=== PATIENT | male | born 1965 | race Caucasian/White ===

== ENCOUNTER 2021-01-10 06:03 | Day surgery (SDC) | payer BC ==
[~2021-01-10] VITALS: Ht 180.3 cm; Wt 99.8 kg
[~2021-01-10 06:03] MED LIST: ATOR20 PO; CLON.2 PO; DEPO-TESTO200 MG/14 IM; DHA100 MG PO; LISI10 PO; Lisinopril-Hct1 EAC4 PO
--- NOTE | 2021-01-10 06:53 | NUR ---
PT AMBULATES TO [facility] c STEADY GAIT. REPORTS NPO SINCE MIDNIGHT. History, Chart, Medications and Allergies reviewed before start of procedure. Lungs clear T/O to Auscultation. Patient reports completing Chlorhexadine shower X2 prior to admission to hospital. Patient States Post-Procedure ride home has been arranged.
--- NOTE | 2021-01-10 09:56 | NUR ---
Discharge instructions reviewed with patient. Patient verbalizes understanding. Copy given to patient to take home. Patient States Post-Procedure ride home has been arranged. Discharged via wheelchair to private car for ride home.
--- NOTE | 2021-01-12 09:47 | NUR ---
01/12/21 0947 Karen Ca VERIFICATIONS: EDIT CHART.
== END 2021-01-10 09:41 | disposition home or self-care (01) ==
LOC: ORSCMMR 06:03 → ORD 07:30 → ORSCMMR 09:41
PROVIDERS: Surgery
PROC: 0WUF0JZ Supplement Abdominal Wall with Synthetic Substitute, Open Approach (ICD-10-PCS; principal; 2021-01-10 07:30)
DX: K42.0 Umbilical hernia with obstruction, without gangrene (principal); E78.5 Hyperlipidemia, unspecified; Z79.899 Other long term (current) drug therapy
CPT/HCPCS: A9270; C1781; J0690; J1100; J1885; J2250; J2370; J2405; J2704; J3010; J7120

== ENCOUNTER 2022-05-28 22:44 | Inpatient (IN) | payer BC ==
[~2022-05-28] VITALS: Ht 180.3 cm; Wt 96.4 kg
[2022-05-29] VITALS (16 sets, daily range): BP systolic 123–163; BP diastolic 46–100
--- NOTE | 2022-05-29 00:55 | NUR ---
INCREASE RESTLESSNESS IN BED, SATS 85% RA. O2 5L/NC PLACED, HR TACHY 100'S, RR, 30'S-40'S, BP STABLE. CONTINUE TO MONITOR.
--- NOTE | 2022-05-29 02:25 | NUR ---
IV LEFT HAND FLUSHED WITH 10CC NS FOR IVF'S.DRESSING D&I.
--- NOTE | 2022-05-29 02:41 | NUR ---
PT BROUGHT TO DAY SURGERY FOR FOREIGN BODY REMOVAL. PRE-OP ASSESSMENT DONE. LIDOCAINE 2% SPRAYED TO OROPHARYNX AND NOT TOLERABLE. PT STARTED TO VOMIT. ATTEMPTED LIDO SPARY AGAIN AND DR POTTER WITNESSED PT VOMITING. DR POTTER SPOKE WITH PATIENT AND MADE DECISSION THAT PATIENT NEEDS TO BE INTUBATED PRIOR TO PROCEDURE. ER DOCTOR AT BEDSIDE CONSENTING.
--- NOTE | 2022-05-29 05:07 | NUR ---
PT BACK INTO DAY SURGERY DEPT FOR RECOVERY TO DISCHARGE HOME. BP STABLE, RR HIGH 20'S TO 30'S, HR TACHY. CONTINUE TO MONITOR. DR. POTTER AT BEDSIDE.
--- NOTE | 2022-05-29 05:30 | NUR ---
PT AWAKE. O2/NC TURNED OFF TO CHECK ON ROOM AIR, SATS 92%. CONTINUE TO MONITOR.
--- NOTE | 2022-05-29 05:57 | NUR ---
PT CONTINUES TO BE RESTLESS, DIAPHORETIC, RR MID 30'S TO 40'S, HR TACHY. CALLED TO DR POTTER REGARDING PT STATUS AND WITH POSSIBLE OBSERVATION ADMISSION NEEDED. PER DR WILL COME AND SEE PT.
--- NOTE | 2022-05-29 06:11 | NUR ---
DECREASE SATS 87%. INCREASE O2 6L/NC, CONTINUES TO BE RESTLESS, TACHYPNEIC, BP STABLE. DR POTTER ADMITTING PT FOR OBSERVATION. CONTINUE TO MONITOR.
--- NOTE | 2022-05-29 06:30 | NUR ---
PT CONTINUES TO BE RESTLESS, DECREASE SATS 88%, TACHYPENIC. REPLACED O2 WITH 11L OXYMIZER. AWAITING FOR BED ASSIGNMENT. WILL ORDER PCXR FOR DECREASE SATS/POST FOREIGN BODY REMOVAL. CONTINUE TO MONITOR CLOSELY.
--- NOTE | 2022-05-29 06:35 | NUR ---
REPORT GIVEN TO [facility]AN ICU NIGHT AND JORDAN DAY SHIFT CHARGE NURSE. AWAIT FOR ADMISSION ORDERS.
--- NOTE | 2022-05-29 07:15 | NUR ---
05/29/22 0715 Low Martins History, Chart, Medications and Allergies reviewed before start of procedure.MONITOR INTACT WITH CONTINUOUS PULSE OXIMETRY, CONTINUOUS END TITAL CO2, AND INTERMITTENT BLOOD PRESSURE.SEE NURSES NOTES.
--- NOTE | 2022-05-29 07:57 | NUR ---
TRANSFERRED PT VIA [facility] TO ICU 15 PCU STATUS. WILL REPORT OFF TO DANNIELLE PICHARDO RN IN ICU.
--- NOTE | 2022-05-29 08:00 | NUR ---
ICU ADMISSION: REPORT RECEIVED FROM GIANNI Dickinson RN. PT ARRIVED TO ICU-15 AT APPROX 0800 THIS AM. ON ARRIVAL, THE PT IS AWAKE, A&O TO ALL, ABLE TO STAND & TX FROM GURNEY TO BED. LS CLEAR, DIM IN BASES. PT INITIALLY ON 11L OXYMYZER, TITRATED DOWN TO 5L W/ O2 SATS > 95%. MONITOR SHOWS ST W/ HR 100-130s, INCREASED W/ EXERTION. HTN W/ SBP 150-160s IS BASELINE, PER PT. HE CURRENTLY HAS NO GI COMPLAINTS, DIET ORDERED TO BE ADVANCED TOLERATED PER DR POTTER. ICE CHIPS GIVEN PER PT REQUEST W/ NO C/O NAUSEA. PT VOIDS URINE W/O DIFFICULTY. SKIN CONDITION OVERALL INTACT, PT REPOSITIONS SELF FOR COMFORT PRN. WILL CONTINUE TO MONITOR & UPDATE NEEDED.
--- NOTE | 2022-05-29 08:50 | NUR ---
DR WHALEN: PROVIDER HAS BEEN AT BEDSIDE TO EVAL PT & COMPLETE ADMISSION PROCESS THIS AM. PT REMAINS PCU STATUS & STABLE, NO CHANGES AT THIS TIME.
[2022-05-29 08:56] LABS: BASOPHILS ABSOLUTE AUTO 0.06 K/mm3 (0.00-0.23); BASOPHILS PERCENT AUTO 1 % (0-2); EOSINOPHILS ABSOLUTE AUTO 0.01 K/mm3 (0.00-0.68); EOSINOPHILS PERCENT AUTO 0 % (0-6); Hematocrit 52.6 % (37.0-53.0); Hemoglobin 17.5 g/dL (13.5-17.5); IMMATURE GRAN ABSOLUTE AUTO 0.02 K/mm3 (0.00-0.10); IMMATURE GRAN PERCENT AUTO 0 % (0-1); LYMPHOCYTES ABSOLUTE AUTO 1.08 K/mm3 (0.84-5.20); LYMPHOCYTES PERCENT AUTO 9 % (21-46); MONOCYTES ABSOLUTE AUTO 0.46 K/mm3 (0.16-1.47); MONOCYTES PERCENT AUTO 4 % (4-13); Mean Corpuscular HGB 28.4 pg (26.0-34.0); Mean Corpuscular HGB Conc 33.3 g/dL (31.5-36.5); Mean Corpuscular Volume 85 fL (80-100); Mean Platelet Volume 9.8 fL (9.1-12.4); NEUTROPHILS ABSOLUTE AUTO 10.85 K/mm3 (1.96-9.15); NEUTROPHILS PERCENT AUTO 87 % (41-73); Platelet Count 208 K/mm3 (150-400); RDW Coefficient Variation 13.4 % (11.7-14.2); RDW Standard Deviation 41.5 fL (35.1-46.3); Red Blood Cell Count 6.16 M/mm3 (4.30-5.90); White Blood Cell Count 12.48 K/mm3 (4.00-11.30)
[2022-05-29 09:13] LABS: Albumin, Blood 3.8 g/dL (3.4-5.0); Anion Gap 1 mmol/L (6-16); Blood Urea Nitrogen 24 mg/dL (8-24); CO2, Blood 27 mmol/L (21-32); Chloride, Blood 116 mmol/L (98-108); Creatinine, Blood 1.09 mg/dL (0.60-1.20); Glomerular Filtration Rate 79 (60-); Glucose, Blood 99 mg/dL (70-99); Magnesium, Blood 2.1 mg/dL (1.6-2.4); Phosphorus, Blood 3.5 mg/dL (2.5-4.9); Potassium, Blood 3.4 mmol/L (3.5-5.5); Sodium, Blood 144 mmol/L (136-145)
--- NOTE | 2022-05-29 17:20 | NUR ---
SHIFT SUMMARY: NO ACUTE CHANGES SINCE PRIOR UPDATES. PT REMAINS A&O, PLEASANT & COOPERATIVE. HE DENIES ANY CURRENT PAIN. LOW GRADE FEVER NOTED THIS EVENING W/ TYLENOL GIVEN PER EMAR. LS DIM IN BASES, PT ON 3L NC W/ O2 SATS > 92%. PT STS HAVING SOME SOB W/ EXERTION, "IT FEELS LIKE I HAVE A PNEUMONIA OR SOMETHING." ASPIRATION LIKLIHOOD HAS BEEN DISCUSSED. MONITOR SHOWS SR W/ HR 90s, BP STABLE. PT HAS NO GI COMPLAINTS, IS TOLERATING CLEAR LIQUID DIET WELL. WILL ADVANCE TO FULL LIQUIDS FOR AM. PT VOIDS USING URINAL W/O DIFFICULTY. SKIN CONDITION OVERALL INTACT, PT REPOSITIONS SELF FOR COMFORT PRN. WILL CONTINUE TO MONITOR & REPORT OFF TO ONCOMING RN.
[2022-05-30] VITALS (7 sets, daily range): BP systolic 132–159; BP diastolic 72–89
[2022-05-30 03:46] LABS: BASOPHILS ABSOLUTE AUTO 0.06 K/mm3 (0.00-0.23); BASOPHILS PERCENT AUTO 0 % (0-2); EOSINOPHILS ABSOLUTE AUTO 0.08 K/mm3 (0.00-0.68); EOSINOPHILS PERCENT AUTO 0 % (0-6); Hematocrit 48.1 % (37.0-53.0); IMMATURE GRAN ABSOLUTE AUTO 0.08 K/mm3 (0.00-0.10); IMMATURE GRAN PERCENT AUTO 0 % (0-1); LYMPHOCYTES ABSOLUTE AUTO 1.74 K/mm3 (0.84-5.20); LYMPHOCYTES PERCENT AUTO 9 % (21-46); MONOCYTES ABSOLUTE AUTO 0.83 K/mm3 (0.16-1.47); MONOCYTES PERCENT AUTO 4 % (4-13); Mean Corpuscular HGB 28.3 pg (26.0-34.0); Mean Corpuscular HGB Conc 33.3 g/dL (31.5-36.5); Mean Corpuscular Volume 85 fL (80-100); Mean Platelet Volume 9.4 fL (9.1-12.4); NEUTROPHILS ABSOLUTE AUTO 16.54 K/mm3 (1.96-9.15); NEUTROPHILS PERCENT AUTO 86 % (41-73); Platelet Count 180 K/mm3 (150-400); RDW Coefficient Variation 13.5 % (11.7-14.2); RDW Standard Deviation 41.9 fL (35.1-46.3); Red Blood Cell Count 5.66 M/mm3 (4.30-5.90); White Blood Cell Count 19.33 K/mm3 (4.00-11.30)
[2022-05-30 04:25] LABS: Bun/Creatinine Ratio 19.2 (12.0-20.0); Calcium, Blood 8.8 mg/dL (8.5-10.1); Creatinine, Blood 0.99 mg/dL (0.60-1.20); Potassium, Blood 3.3 mmol/L (3.5-5.5)
--- NOTE | 2022-05-30 06:31 | NUR ---
PATIENT AOX4. SR WITH STABLE BP. ABLE TO WEAN OFF OXYGEN OVERNIGHT AND PATIENT NOW ON ROOM AIR WITH SATS >94. TOLERATING DIET. NO N/V OVERNIGHT.
--- NOTE | 2022-05-30 08:25 | NUR ---
ASSUMED CARE: REPORT RECEIVED FROM TORI Dickinson RN. ASSUMED CARE OF THIS PT AT APPROX 0700. ON ASSESSMENT, THE PT IS AWAKE, A&O TO ALL. FAINT CRACKLES NOTED TO LOWER LUNGS, PT ON RA W/ O2 SATS > 92%. MONITOR SHOWS SR W/ HR 70-80s, BP STABLE. NO GI COMPLAINTS, TOLERATING PO INTAKE WELL. VOIDS URINE W/O DIFFICULTY USING URINAL. URINE NOW SHUTTLE THREADER IN COLOR & PT URINATING MORE OFTEN. SKIN OVERALL INTACT, PT REPOSITIONS SELF FOR COMFORT PRN. WILL CONTINUE TO MONITOR & UPDATE NEEDED.
--- NOTE | 2022-05-30 15:59 | NUR ---
Pt. is awake in his bed and welcomes my visit. Pt. is pleasant, but is unsettled by the impact of the cost of his health care. Listen with empathy and a calming presence. Pt. displays evidence of understanding and engagement. Pastoral budget counselor is given, and then I prayed with the Pt. Pt. verbalized gratitude for the spiritual care visit.
--- NOTE | 2022-05-30 17:00 | NUR ---
TRANSFER TO PCU / SHIFT SUMMARY: REPORT HAS BEEN GIVEN TO JUSTINA Ahmadi RN TO ASSUME CARE. PT TRANSFERRED TO [facility] AT APPROX 1655 VIA WC BY THIS RN. CHART & ALL BELONGINGS TAKEN OVER AT THAT TIME. NO ACUTE CHANGES SINCE PRIOR UPDATES. PT REMAINS A&O, PLEASANT & COOPERATIVE W/ CARE. HE HAS VERBALIZED UNDERSTANDING OF RATIONALE FOR STAYING IN HOSPITAL ONE MORE NIGHT FOR CONTINUED MONITORING OF RESPIRATORY STATUS & ELECTROLYTE LEVELS. LS CLEAR, PT ON RA W/ O2 SATS > 92%. MONITOR SHOWS SR W/ HR 70-80s, BP STABLE. PT HAS NO GI COMPLAINTS, TOLERATING PO INTAKE WELL. LARGE BROWN UNFORMED BM x2 THIS SHIFT, PT STS NORMAL FOR HIM. VOIDS URINE W/O DIFFICULTY USING URINAL. SKIN CONDITION OVERALL INTACT, PT REPOSITIONS SELF FOR COMFORT PRN.
--- NOTE | 2022-05-30 18:05 | NUR ---
SHIFT SUMMARY PT ARRIVED TO PCU FROM ICU VIA WHEELCHAIR AT APPROX 1700. PT A&OX4. SP02>90%ON RA. TELEMETRY SHOWS NSR, HR 90'S. VSS. UP TO BATHROOM SBA TO VOID/HAVE LOOSE BM. FLUIDS INFUSING PER EMAR. MD POTTER IN ROOM TO DISCUSS RESULTS W/ PT. MD POTTER HAVE DISCUSSION ABOUT MEDICATION VS GIVING UP A FOOD CAUSING POTENTIAL ALLERGY. PT ORIENTED TO ROOM, CALL LIGHT. CALL LIGHT IN REACH.
[2022-05-31 03:23] VITALS: BP 136/79
[2022-05-31 04:16] LABS: BASOPHILS ABSOLUTE AUTO 0.04 K/mm3 (0.00-0.23); BASOPHILS PERCENT AUTO 0 % (0-2); EOSINOPHILS ABSOLUTE AUTO 0.17 K/mm3 (0.00-0.68); EOSINOPHILS PERCENT AUTO 1 % (0-6); Hematocrit 47.6 % (37.0-53.0); Hemoglobin 16.1 g/dL (13.5-17.5); IMMATURE GRAN ABSOLUTE AUTO 0.05 K/mm3 (0.00-0.10); IMMATURE GRAN PERCENT AUTO 0 % (0-1); LYMPHOCYTES ABSOLUTE AUTO 1.65 K/mm3 (0.84-5.20); LYMPHOCYTES PERCENT AUTO 11 % (21-46); MONOCYTES ABSOLUTE AUTO 1.11 K/mm3 (0.16-1.47); MONOCYTES PERCENT AUTO 7 % (4-13); Mean Corpuscular HGB 28.2 pg (26.0-34.0); Mean Corpuscular HGB Conc 33.8 g/dL (31.5-36.5); Mean Corpuscular Volume 84 fL (80-100); Mean Platelet Volume 9.7 fL (9.1-12.4); NEUTROPHILS ABSOLUTE AUTO 12.09 K/mm3 (1.96-9.15); NEUTROPHILS PERCENT AUTO 80 % (41-73); Platelet Count 197 K/mm3 (150-400); RDW Coefficient Variation 13.3 % (11.7-14.2); RDW Standard Deviation 40.9 fL (35.1-46.3); White Blood Cell Count 15.11 K/mm3 (4.00-11.30)
[2022-05-31 04:28] LABS: Albumin, Blood 3.2 g/dL (3.4-5.0); Anion Gap 4 mmol/L (6-16); Blood Urea Nitrogen 15 mg/dL (8-24); Bun/Creatinine Ratio 15.8 (12.0-20.0); CO2, Blood 27 mmol/L (21-32); Calcium, Blood 8.9 mg/dL (8.5-10.1); Chloride, Blood 109 mmol/L (98-108); Creatinine, Blood 0.95 mg/dL (0.60-1.20); Glomerular Filtration Rate 93 (60-); Glucose, Blood 115 mg/dL (70-99); Phosphorus, Blood 2.6 mg/dL (2.5-4.9); Potassium, Blood 3.3 mmol/L (3.5-5.5); Sodium, Blood 140 mmol/L (136-145)
--- NOTE | 2022-05-31 05:15 | NUR ---
SHIFT SUMMARY PT A&Ox4, CALLS AND COMMUNICATES NEEDS APPROPRIATELY. BP STABLE, SINUS 60-70's, DENIES CP/PRESSURE. SpO2> 92% RA, DENIES SOB. PT SBA INTO BATHROOM FOR VOIDS, CONTINENT OF URINE AND BOWEL. PT WITH LOOSE STOOLS, STATES THAT HE HAS HAD LOOSE STOOL FOR YEARS AND TAKES IMODIUM AT HOME, NOTIFIED PHYSICIAN, ORDERS PLACED. LOOSE STOOLS SUBSIDED AFTER ADMINISTERING IMODIUM PER EMAR. PT TOLERATED FULL LIQUID DIET WITHOUT DIFFICULTY. NO OTHER EVENTS, WILL REPORT TO ONCOMING RN.
[2022-05-31] MEDS ORDERED: Acetaminophen650 M1 PO (12:58)
[2022-05-31] MEDS ORDERED: Prinivil10 MG PO (12:59)
[2022-05-31] MEDS ORDERED: LOPE2C (12:59)
[2022-05-31] MEDS ORDERED: POTCHL20ER PO (12:59)
[2022-05-31] MEDS ORDERED: HYDCHL25 PO (12:59)
[2022-05-31] MEDS ORDERED: VISBIOME 112.51 EACH PO (13:00)
[2022-05-31] MEDS ORDERED: AMOCLA875 PO (13:01)
--- NOTE | 2022-05-31 19:24 | NUR ---
LATE ENTRY: PATIENT WAS DISCHARGED WITH CURRENT PLAN, MEDICATIONS FAXED TO PHARMACY, NO QUESTIONS OR COMMENTS THAT WERE NOT ANSWERED, MEENA'S POV FOR RIDE. PATIENT DENIES CHEST PAIN PRESSURE OR SOB. RECIEVED AM ANTIBIOTIC AND ANTI FUNGAL. PATIENT ON RA, ABSOLUTELY NO SIGNS OF DISTRESS. NO CONCERNS FROM THIS RN AT THIS TIME. DISCHARGE PAPERWORK AND PERSONLA BELONGINGS WITH PATIENT, ESCORTED BY PCT OUTSIDE.
== END 2022-05-31 13:30 | disposition home or self-care (01) | DRG 177 ==
LOC: ER 22:44 → ICUW 05-29 07:45 → PCU 05-30 16:57
PROVIDERS: Internal Medicine Gastroenterology; ADMIT Internal Medicine
PROC: 0DB18ZX Excision of Upper Esophagus, Via Natural or Artificial Opening Endoscopic, Diagnostic (ICD-10-PCS; 2022-05-29)
PROC: 0DB28ZX Excision of Middle Esophagus, Via Natural or Artificial Opening Endoscopic, Diagnostic (ICD-10-PCS; 2022-05-29)
PROC: 0D758ZZ Dilation of Esophagus, Via Natural or Artificial Opening Endoscopic (ICD-10-PCS; 2022-05-29)
PROC: 0DC58ZZ Extirpation of Matter from Esophagus, Via Natural or Artificial Opening Endoscopic (ICD-10-PCS; principal; 2022-05-29 02:00)
PROC: 0DB38ZX Excision of Lower Esophagus, Via Natural or Artificial Opening Endoscopic, Diagnostic (ICD-10-PCS; 2022-05-29 02:00)
PROC: 0DB68ZX Excision of Stomach, Via Natural or Artificial Opening Endoscopic, Diagnostic (ICD-10-PCS; 2022-05-29 02:00)
DX: J69.0 Pneumonitis due to inhalation of food and vomit (principal); J96.01 Acute respiratory failure with hypoxia; T18.128A Food in esophagus causing other injury, initial encounter; I10 Essential (primary) hypertension; E78.5 Hyperlipidemia, unspecified; K25.9 Gastric ulcer, unspecified as acute or chronic, without hemorrhage or perforation; E87.6 Hypokalemia; K22.2 Esophageal obstruction; Z98.890 Other specified postprocedural states; Z79.899 Other long term (current) drug therapy; Z79.811 Long term (current) use of aromatase inhibitors; Z79.02 Long term (current) use of antithrombotics/antiplatelets
CPT/HCPCS: 31500; 36415; 71045; 71046; 80048; 80069; 83735; 85025; 88305; 88342; 94002; 96374-59; 96375-59; 99284-25; A9270; J0696; J1610; J1650; J1885; J2405; J2704; J7060; J7120

== ENCOUNTER 2024-07-28 06:11 | Day surgery (SDC) | payer BC ==
[~2024-07-28] VITALS: Ht 180.3 cm; Wt 107.8 kg
[~2024-07-28 06:11] MED LIST changes: +AMOCLA875 PO; +Acetaminophen650 M1 PO; +HYDCHL25 PO; +LOPE2C; +POTCHL20ER PO; +Prinivil10 MG PO; +Tranexamic Acid 100 ML IV ONE; +VISBIOME 112.51 EACH PO
[2024-07-28] MEDS ORDERED: Acetaminophen 500 MG Tab ONE (06:51)
[2024-07-28] MEDS ORDERED: Dexamethasone Sod Phos 10 MG/ML 1ML VIAL ONE (06:52)
[2024-07-28] MEDS ORDERED: OxyCODONE HCL 10 MG TABCR ONE (06:52)
[2024-07-28] MEDS ORDERED: Bupivacaine 0.5% HCl 5 MG/ML 30MLVIAL ONE (06:52)
[2024-07-28] MEDS ORDERED: Lactated Ringer's 1,000 ML IV ONE ×2 (06:53→09:35)
[2024-07-28] MEDS ORDERED: CefTRIAXone Sodium 2,000 MG in NS 100 ML IV SCH (07:00)
[2024-07-28] MEDS ORDERED: OxyCODONE HCL 10 MG TABCR PO SCH (07:00)
[2024-07-28] MEDS ORDERED: Tranexamic Acid 100 ML IV SCH (07:00)
[2024-07-28] MEDS ORDERED: Acetaminophen 500 MG Tab PO SCH (07:00)
[2024-07-28] MEDS ORDERED: ESCI10 PO (07:09)
[2024-07-28] MEDS ORDERED: Bupivacaine 0.5% W/EPI 1:200000 SDV 30 ML Vial ONE (07:13)
--- NOTE | 2024-07-28 07:26 | NUR ---
07/28/24 07 NILTON IRBY T/O FOR NERVE BLIK W/ DR DARBY @ 0718 START BLOCK: 719 END BLOCK: 725 O2 96% RA
[2024-07-28] MEDS ORDERED: FentaNYL Citrate 50 MCG/ML 2 ML Injection ONE (07:28)
[2024-07-28] MEDS ORDERED: Rocuronium Bromide 10 MG/ML 5ML Injection IV ONE (07:28)
[2024-07-28] MEDS ORDERED: propofoL 20 ML IV ONE (07:28)
[2024-07-28] MEDS ORDERED: Ondansetron HCl 2 MG / ML 2ML Vial ONE (07:28)
[2024-07-28] MEDS ORDERED: Ketorolac Tromethamine 30mg Vial ONE (07:28)
[2024-07-28] MEDS ORDERED: Midazolam HCl 1MG / ML 2ML Vial ONE ×2 (07:48→07:49)
[2024-07-28] MEDS ORDERED: NS 1,000 ML IV ONE (07:49)
[2024-07-28] MEDS ORDERED: Phenylephrine HCl 100 MCG/ML-NS 10MLSYR (1MG/10ML) ONE (07:59)
[2024-07-28] MEDS ORDERED: Vasopressin 20 UNITS/ML 1ML Vial ONE (08:38)
[2024-07-28] MEDS ORDERED: Tranexamic Acid 100 ML IV ONE (10:27)
--- NOTE | 2024-07-28 10:28 | NUR ---
07/28/24 1028 HENOK JUNIOR RECEIVED PT FROM OR. PT SLEEPING, EDILBERTO ALVARADO PERFORMING JAW THRUST PT IS BELIEVED TO HAVE SOME UNDIAGNOSED SLEEP APNEA. PT PLACED ON O2 VIA FACETENT AT 10L. POLAR PACK AND DRESSING IN PLACE. ULTRASLING ON. ONCE WAKING PT DENIES PAIN/NAUSEA REPORT GIVEN TO EDILBERTO CARSON
[2024-07-28 10:36] VITALS: BP 118/69
[2024-07-28] MEDS ORDERED: Ondansetron 4 MG SoluTab ONE (11:58)
--- NOTE | 2024-07-28 12:23 | NUR ---
07/28/24 1223 HENOK JUNIOR RECEIVED REPORT FROM EDILBERTO CARSON. THIS PT IS KNOWN TO THIS RN FROM PACU. SENDING EDILBERTO CARSON TO LUNCH. PT IS RESTING IN THE RECLINER, ON 2L VIA NC. PT ENCOURAGED TO USE INCENTIVE SPIROMETER, W/PT DEMONSTRATION. PT TRIALED ON ROOM AIR, KEEPING 02 SATS GREATER THAN 93%. PT VERBALIZED SOME NAUSEA WHEN ASKED PRIOR TO REMOVING IV, RECEIVED ORDER FROM FOR ORAL ONDANSETRON 8MG TABLET, ODT X1. PT MEDICATED WITH SUCH. PT VERBALIZED WANTING TO GO HOME AT THIS POINT. NO O2, PT ON ROOM AIR. EDILBERTO CARSON REVIEWED DC INSTRUCTIONS PRIOR TO LEAVING FOR LUNCH. PT W/SBA IN RESTROOM, VOID X1. ESCORTED TO VEHICLE VIA WC. DRESSING C/D/I.
== END 2024-07-28 12:20 | disposition home or self-care (01) ==
LOC: ORSCSDS 06:11
PROVIDERS: Orthopaedic Surgery
PROC: 0RRJ00Z Replacement of Right Shoulder Joint with Reverse Ball and Socket Synthetic Substitute, Open Approach (ICD-10-PCS; principal; 2024-07-28 07:30)
DX: M19.011 Primary osteoarthritis, right shoulder (principal); I10 Essential (primary) hypertension; F41.9 Anxiety disorder, unspecified; E78.00 Pure hypercholesterolemia, unspecified; Z79.899 Other long term (current) drug therapy
CPT/HCPCS: 73030; A9270; C1713; C1776; J0696; J1100; J1885; J2250; J2371; J2405; J2704; J3010; J7030; J7120

== ENCOUNTER → 2024-10-16 | Outpatient (CLI) | payer BC ==
[~2024-10-16] MED LIST changes: +ESCI10 PO; -Tranexamic Acid 100 ML IV ONE
[2024-10-16 15:47] LABS: BASOPHILS ABSOLUTE AUTO 0.05 K/mm3 (0.00-0.23); BASOPHILS PERCENT AUTO 1 % (0-2); EOSINOPHILS ABSOLUTE AUTO 0.10 K/mm3 (0.00-0.68); EOSINOPHILS PERCENT AUTO 1 % (0-6); Hematocrit 53.2 % (37.0-53.0); Hemoglobin 17.3 g/dL (13.5-17.5); IMMATURE GRAN ABSOLUTE AUTO 0.03 K/mm3 (0.00-0.10); IMMATURE GRAN PERCENT AUTO 0 % (0-1); LYMPHOCYTES ABSOLUTE AUTO 1.31 K/mm3 (0.84-5.20); LYMPHOCYTES PERCENT AUTO 14 % (21-46); MONOCYTES ABSOLUTE AUTO 0.96 K/mm3 (0.16-1.47); MONOCYTES PERCENT AUTO 10 % (4-13); Mean Corpuscular HGB Conc 32.5 g/dL (31.5-36.5); Mean Corpuscular Volume 88 fL (80-100); NEUTROPHILS ABSOLUTE AUTO 6.83 K/mm3 (1.96-9.15); NEUTROPHILS PERCENT AUTO 74 % (41-73); NRBC ABSOLUTE 0.00 K/mm3 (0.00-0.02); NRBC Auto 0.0 /100 WBC (0.0-0.2); Platelet Count 215 K/mm3 (150-400); RDW Coefficient Variation 14.2 % (11.7-14.2); RDW Standard Deviation 44.9 fL (35.1-46.3)
== END | disposition home or self-care (01) ==
LOC: LAB 14:03 → LAB SHORT 14:03
PROVIDERS: Internal Medicine Hematology & Oncology
DX: D75.1 Secondary polycythemia (principal)
CPT/HCPCS: 85025